=== PATIENT | male | born 1990 | race Caucasian/White ===

== ENCOUNTER 2021-10-13 12:57 | Emergency (ER) | payer OTHER ==
[~2021-10-13] VITALS: Ht 182.9 cm; Wt 117.0 kg
[2021-10-13 13:00] VITALS: BP_SYST 133
[2021-10-13] MEDS ORDERED: TENOFOVIR PO ONE (19:15)
[2021-10-13] MEDS ORDERED: RALTEGRAVIR POTASSIUM 400 MG TABLET PO ONE (19:15)
[2021-10-13] MEDS ORDERED: EMTRICITABINE PO ONE (19:15)
[2021-10-13] MEDS ORDERED: RALT400T PO (19:16)
[2021-10-13] MEDS ORDERED: EMTR1TAB14 PO ×2 (19:16)
[2021-10-14 10:07] LABS: HEPATITIS B CORE AB, TOTAL Negative (Negative); HEPATITIS B SURFACE AG Negative (Negative); HEPATITIS C VIRUS AB <0.1 s/co ratio (0.0-0.9)
[2021-10-14] MEDS ORDERED: EMTR1TAB12 PO (15:36)
== END 2021-10-13 19:00 | disposition home or self-care (01) ==
LOC: EDSTATUS 12:57 → SED 13:04 → EEVIPCON 13:04 → SED 19:00
DX: S61.439A Puncture wound without foreign body of unspecified hand, initial encounter (principal); W46.0XXA Contact with hypodermic needle, initial encounter; Y93.89 Activity, other specified; Y92.89 Other specified places as the place of occurrence of the external cause; Y99.8 Other external cause status
CPT/HCPCS: 36415; 86704; 86706; 86803; 87340; 99283